=== PATIENT | female | born 1990 | race Caucasian/White ===

== ENCOUNTER 2016-12-25 08:52 | Emergency (ER) | payer SELFPAY ==
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
[2016-12-25] MEDS ORDERED: Sodium Chloride 0.9% 1,000 ML PRIMARY IV ONE (09:29)
[2016-12-25] MEDS ORDERED: NORMAL SALINE 10 ML SYRINGE FLUSH IVP PRN (09:29)
[2016-12-25 09:56] VITALS: RESP 15; TEMP 97.5
[2016-12-25] MEDS ORDERED: ONDANSETRON 4 MG/2 ML VIAL IVP ONE (10:14)
[2016-12-25 10:28] LABS: BASOPHILS # (AUTO) 0.05 10*3/UL; BASOPHILS % (AUTO) 0.4 % (0-1); EOSINOPHILS % (AUTO) 1.8 % (0-8); HEMATOCRIT 43.1 % (37.0-47.0); HEMOGLOBIN 14.4 g/dL (12.0-16.0); IMM GRAN % (AUTO) 0.2 % (0-5); IMM GRAN# (AUTO) 0.02 10*3/UL; LYMPHOCYTES # (AUTO) 2.98 10*3/uL; LYMPHOCYTES % (AUTO) 25.2 % (10-50); MEAN CORPUSCULAR HEMOGLOBIN 28.8 PG (27-31); MEAN CORPUSCULAR HGB CONC 33.4 g/dL (33-37); MEAN PLATELET VOLUME 9.3 FL (7.4-12.2); MONOCYTES # (AUTO) 0.99 10*3/UL (0.3-0.8); MONOCYTES % (AUTO) 8.4 % (5-15); NEUTROPHILS # (AUTO) 7.58 10*3/UL; RDW COEFFICIENT OF VARIATION 14.5 % (11.5-14.5); WHITE BLOOD COUNT 11.83 10^3/uL (4.8-10.8)
[2016-12-25 10:30] LABS: PLATELET MORPHOLOGY COMMENT NORMAL MORPHOLOGY (NORM)
[2016-12-25 10:39] LABS: ASPARTATE AMINO TRANSFERASE 26 IU/L (8-39); BILIRUBIN,TOTAL 0.5 mg/dL (0.3-1.2); BLOOD UREA NITROGEN 13 mg/dL (7-22); BUN/CREATININE RATIO 21.66 (6-20); CHLORIDE 104 meq/L (98-112); CREATININE 0.6 mg/dL (0.50-1.20); EST GLOMERULAR FILTRATION > 60 (>60 ml/min/1.73m(2)); GLUCOSE 85 mg/dL (78-110); POTASSIUM 4.5 meq/L (3.8-5.2); SERUM ALCOHOL < 10 mg/dL (0-10); SODIUM 142 meq/L (135-145); TOTAL PROTEIN 8.4 g/dL (6.1-8.0)
[2016-12-25 10:54] LABS: URINE SAMPLE TYPE CLEAN CATCH URINE
[2016-12-25 10:55] LABS: CANNABINOID SCREEN,URINE NEGATIVE (NEG); COCAINE SCREEN NEGATIVE (NEG); METHAMPHETAMINES SCREEN,URINE NEGATIVE (NEG)
[2016-12-25] MEDS ORDERED: fentaNYL Inj 100 MCG/2 ML VIAL IVP PRN (11:48)
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
[2016-12-25] MEDS ORDERED: HYDROcodone-APAP 5 MG -325 MG TABLET PO ONE (12:45)
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
== END 2016-12-25 13:09 | disposition home or self-care (01) ==
LOC: ER 08:52
DX: S06.0X1A Concussion with loss of consciousness of 30 minutes or less, initial encounter (principal); M54.6 Pain in thoracic spine; S16.1XXA Strain of muscle, fascia and tendon at neck level, initial encounter; R11.0 Nausea; R51 Headache; V43.52XA Car driver injured in collision with other type car in traffic accident, initial encounter; Y92.488 Other paved roadways as the place of occurrence of the external cause
CPT/HCPCS: 70450; 71010; 72125; 74177; 80053; 80320; 84703; 85025; 96374; 96375; 99283 ×2; G0477; J2360; J3010; 80305; J2405; J7030